=== PATIENT | female | born 1960 | race Caucasian/White ===

== ENCOUNTER → 2021-01-14 | Outpatient (CLI) | payer BC, OTHER | LOC: KOH-I 13:00 | DX: M54.40 Lumbago with sciatica, unspecified side (principal); M43.16 Spondylolisthesis, lumbar region; M48.061 Spinal stenosis, lumbar region without neurogenic claudication; M43.17 Spondylolisthesis, lumbosacral region; M48.07 Spinal stenosis, lumbosacral region | CPT/HCPCS: 72148 ==

== ENCOUNTER → 2021-10-02 | Outpatient (CLI) | payer BC | LOC: LAB 16:04 | DX: H57.11 Ocular pain, right eye (principal) | CPT/HCPCS: 36415; 85652; 86140 ==

== ENCOUNTER → 2021-10-06 | Outpatient (CLI) | payer BC | LOC: KOH-I 08:00 | DX: H57.11 Ocular pain, right eye (principal) | CPT/HCPCS: 70450; 70480 ==